=== PATIENT | male | born 1980 | race Two or more races ===

== ENCOUNTER 2024-12-05 10:18 | Emergency (ER) | payer MEDICAID, OTHER ==
[~2024-12-05] VITALS: Ht 172.7 cm; Wt 94.0 kg
--- NOTE | 2024-12-05 10:53 | ED.PDOC ---
History of Present Illness HPI Comments Chief Complaint: Back Pain Allergies: Coded Allergies: NO KNOWN ALLERGIES (Unverified , 12/05/24) Mode of Arrival: Ambulatory X-Ray, Labs, Meds, VS Vital Signs Date Time Temp Pulse Resp B/P (MAP) Pulse Ox O2 Delivery O2 Flow Rate FiO2 12/05/24 10:20 98.5 67 16 137/85 98 98.5 SEPSIS Sepsis Screen Date sepsis recognized/suspect: Dec 05, 2024 Time Sepsis recognized/suspect: 1020 Recent Procedure: No On Antibiotic Therapy: No Respiratory Rate >20: No Heart Rate >90: No Temp<36 C (96.8 F) or >38.3 C: No SBP <90 or MAP <65 mmHG: No New Acute Mental Status Change: No Is the patient on CPAP, BIPAP,: No Physician Orders Ketorolac Injection (Toradol Injection) (12/05/24 11:00) Vital Signs Date Time Temp Pulse Resp B/P (MAP) Pulse Ox O2 Delivery O2 Flow Rate FiO2 12/05/24 10:20 98.5 67 16 137/85 98 98.5 I personally scribed for JOHNNY MÁRQUEZ PAC ([email or web address]) on 12/05/24 at 10:53. Electronically submitted by Dio Tang ([email or web address]). I personally scribed for JOHNNY MÁRQUEZ PAC ([email or web address]) on 12/05/24 at 10:57. Electronically submitted by Dio Tang ([email or web address]). JOHNNY MÁRQUEZ PAC Dec 05, 2024 10:53
--- NOTE | 2024-12-05 11:00 | ED.PDOC ---
History of Present Illness HPI Comments 44 y/o M presents with 2x week history of chronic back pain. Onset of pain is unprovoked, and atraumatic. Denies any weakness, numbness, tingling, or further associated symptoms. Chief Complaint: Back Pain Time Seen by MD: 10:45 Reviewed Notes: Nurses Notes, Medications, Allergies Allergies: Coded Allergies: NO KNOWN ALLERGIES (Unverified , 12/05/24) Information Source: Patient Mode of Arrival: Ambulatory Severity: Moderate Timing: Hours Duration: Since onset Prehospital treatment: None Past Medical History PAST MEDICAL HISTORY: Denies Surgical History: Denies all surgeries Family History Family History: Unknown Social History Smoker: Non-Smoker Alcohol: Denies ETOH Use Drugs: Denies Drug Use Lives In: Home All Other Systems: Reviewed and Negative (As per HPI) Physical Exam General Appearance: Moderate Distress HEENT: Normal ENT Inspection, PERRL/EOMI, Pharynx Normal, TMs Normal Neck: Full Range of Motion, Non-Tender, Normal, Normal Inspection Respiratory: Chest Non-Tender, Lungs Clear, No Accessory Muscle Use, No Respiratory Distress, Normal Breath Sounds Cardiovascular: No Edema, No JVD, No Murmur, No Gallop, Normal Peripheral Pulses, Regular Rate/Rhythm Breast Exam: Deferred Gastrointestinal: No Organomegaly, Non Tender, No Pulsatile Mass, Normal Bowel Sounds, Soft Genitalia: Deferred Pelvic: Deferred Rectal: Deferred Extremities: No calf tenderness, Normal capillary refill, Normal inspection, Normal range of motion, Non-tender, No pedal edema Musculoskeletal : Location: Bilateral Extremity Location: Back Apperance: Limited ROM, Tenderness: Moderate Neurologic: Alert, high voltage electrician II-XII nml as Tested, No Motor Deficits, Normal Affect, Normal Mood, No Sensory Deficits Cerebellar Function: Normal Reflexes: Normal Skin: Dry, Normal Color, Warm Peripheral Pulses: 1+ carotid (R), 1+ carotid (L) Lymphatic: No Adenopathy Was a procedure done? Was a procedure done?: No Differential Dx Considerations may include: chronic back pain, musculoskeletal pain, sprain, , DDD, among others X-Ray, Labs, Meds, VS Vital Signs Date Time Temp Pulse Resp B/P (MAP) Pulse Ox O2 Delivery O2 Flow Rate FiO2 12/05/24 13:08 67 18 100 Room Air 12/05/24 12:47 98.3 67 18 155/80 (105) 100 98.3 12/05/24 10:20 98.5 67 16 137/85 98 98.5 Current Medications Medications (Trade) Dose Ordered Sig/Lashanda Route Start Time Stop Time Status Last Admin Ketorolac Tromethamine (Toradol Injection) 60 mg ONCE ONCE IM 12/05/24 11:00 12/05/24 11:01 DC 12/05/24 11:02 X-Ray, Labs, Meds, VS Comment Patient came to the emergency department with chronic back pain and exacerbation Patient will be medicated and discharged home to follow up with his PCP Time of 1ST Reevaluation: 11:15 Reevaluation 1ST: Unchanged Time of 2ND Reevaluation: 14:10 Reevaluation 2ND: Improved Consultation: PCP Patient Education/Counseling: Diagnosis, Treatment, Prognosis, Need For Follow Up Family Education/Counseling: Diagnosis, Treatment, Prognosis, Need For Follow Up, No Family Present SEPSIS Sepsis Screen Date sepsis recognized/suspect: Dec 05, 2024 Time Sepsis recognized/suspect: 1020 Recent Procedure: No On Antibiotic Therapy: No Respiratory Rate >20: No Heart Rate >90: No Temp<36 C (96.8 F) or >38.3 C: No SBP <90 or MAP <65 mmHG: No New Acute Mental Status Change: No Is the patient on CPAP, BIPAP,: No Vital Signs Date Time Temp Pulse Resp B/P (MAP) Pulse Ox O2 Delivery O2 Flow Rate FiO2 12/05/24 13:08 67 18 100 Room Air 12/05/24 12:47 98.3 67 18 155/80 (105) 100 98.3 12/05/24 10:20 98.5 67 16 137/85 98 98.5 Medications Medications Dose Ordered Sig/Lashanda Route Start Time Stop Time Status Last Admin Dose Admin Ketorolac Tromethamine 60 mg ONCE ONCE IM 12/05/24 11:00 12/05/24 11:01 DC 12/05/24 11:02 Departure 1 Departure Time of Disposition: 14:12 Impression: Primary Impression: Chronic back pain Additional Impression: Acute exacerbation of chronic low back pain Disposition: 01 HOME / SELF CARE / HOMELESS Condition: Fair Additional Instructions: Local heat and follow up with your PCP e-Prescriptions Cyclobenzaprine Hcl (Cyclobenzaprine Hcl) 10 Mg Tab 10 MG PO TID for 10 Days, #30 TAB Prov: ZO VILLALPANDO MD 12/05/24 Naproxen (Naproxen) 375 Mg Tab 375 MG PO TID for 10 Days, #30 TAB Prov: ZO VILLALPANDO MD 12/05/24 Discharged With: Self Critical Care Note Critical Care Time?: No Stability Stability form required: No Heart Score Heart Score: Heart Score Response (Comments) Value History N/A 0 EKG N/A 0 Age <45 0 Risk Factors No known risk factors 0 Troponin N/A 0 Total 0 I personally scribed for ZO VILLALPANDO MD ([email or web address]) on 12/05/24 at 11:00. Electronically submitted by Dio Tang ([email or web address]). ZO VILLALPANDO MD Dec 05, 2024 11:00
[2024-12-05] MEDS: KETOROLAC TROMETH 60MG/2ML VIAL IM ONE (11:02)
[2024-12-05 12:47] VITALS: BP 155/80; TEMP 98.3
[2024-12-05 13:08] VITALS: PULSE 67; RESP 18; O2SAT 100
[2024-12-05] MEDS ORDERED: CYCL-839 PO (14:15)
[2024-12-05] MEDS ORDERED: NAPR-957 PO (14:15)
== END 2024-12-05 14:41 | disposition home or self-care (01) ==
LOC: ER 10:18
DX: G89.29 Other chronic pain (principal); M54.50 Low back pain, unspecified
CPT/HCPCS: 96372; 99283; J1885

== ENCOUNTER 2025-04-20 15:22 | Emergency (ER) | payer MEDICAID ==
[~2025-04-20] VITALS: Ht 172.7 cm; Wt 97.1 kg
[~2025-04-20 15:22] MED LIST: CYCL-839 PO; NAPR-957 PO
[2025-04-20] MEDS: NEOMYCIN-BACITRACIN-POLYM UNITDOSE PKG TOP OINT TOP ONE (16:00)
[2025-04-20] MEDS: LIDOCAINE 1% (LOCAL ANESTH.) PF 5ml SDV ID ONE (16:00)
[2025-04-20 16:03] VITALS: BP 138/89; PULSE 72; RESP 20; TEMP 97.6; O2SAT 98
[2025-04-20] MEDS ORDERED: ACET500T58 PO (16:24)
[2025-04-20] MEDS ORDERED: CIPR-173 PO (16:24)
--- NOTE | 2025-04-20 16:25 | ED.PDOC ---
HPI Comments The patient with no reported past medical history presents for evaluation of a left index finger laceration sustained approximately 45 minutes before this visit while using a skill saw to work on a chicken coop. The injury involved the dorsal and volar aspects of the distal phalanx. The patient describes mild pain that increased after arrival and notes some bleeding, which has since slowed. There are no current complaints of numbness, weakness, or loss of motion. The patient reports no known allergies to medications. The last tetanus vaccination was received earlier this year. Chief Complaint: Laceration Time Seen by MD: 15:45 Reviewed Notes: Nurses Notes, Medications, Allergies Allergies: Coded Allergies: NO KNOWN ALLERGIES (Unverified , 12/05/24) Home Meds Active Scripts Ciprofloxacin Hcl (Cipro) 500 Mg Tab, 1 TAB PO BID for 5 Days, #10 TAB 0 Refills Prov:MALDONADO CHOWDHURY NP 04/20/25 Acetaminophen (Acetaminophen) 500 Mg Tab, 500 MG PO Q6HP PRN for 7 Days, #28 TAB 0 Refills Prov:MALDONADO CHOWDHURY NP 04/20/25 Cyclobenzaprine Hcl (Cyclobenzaprine Hcl) 10 Mg Tab, 10 MG PO TID for 10 Days, #30 TAB Prov:ZO VILLALPANDO MD 12/05/24 Naproxen (Naproxen) 375 Mg Tab, 375 MG PO TID for 10 Days, #30 TAB Prov:ZO VILLALPANDO MD 12/05/24 Information Source: Patient Mode of Arrival: Ambulatory Complexity: Intermediate Laceration Length (cm): 2 Past Medical History PAST MEDICAL HISTORY: Denies Surgical History: Denies all surgeries Family History Family History: Reviewed,noncontributory to illness, Unknown Social History Smoker: Non-Smoker Alcohol: Denies ETOH Use Drugs: Denies Drug Use Lives In: Home All Other Systems: Reviewed and Negative (PER HPI) Physical Exam General Appearance: No Apparent Distress, Normal HEENT: Normal ENT Inspection, Pharynx Normal, TMs Normal Neck: Full Range of Motion, Non-Tender, Normal, Normal Inspection Respiratory: Chest Non-Tender, Lungs Clear, No Accessory Muscle Use, No Respiratory Distress, Normal Breath Sounds Cardiovascular: No Edema, No JVD, No Murmur, No Gallop, Normal Peripheral Pulses, Regular Rate/Rhythm Breast Exam: Deferred Gastrointestinal: No Organomegaly, Non Tender, No Pulsatile Mass, Normal Bowel Sounds, Soft Genitalia: Deferred Pelvic: Deferred Rectal: Deferred Extremities: No calf tenderness, Normal capillary refill, Normal inspection, Normal range of motion, Non-tender, No pedal edema Musculoskeletal : Location: Left Extremity Location: Finger 3 (Localized laceration to the distal phalanx. No foreign body was appreciated. No active bleeding. Neurovascular sensation was intact) Apperance: Normal Neurologic: Alert, motor vehicles inspector II-XII nml as Tested, No Motor Deficits, Normal Affect, Normal Mood, No Sensory Deficits Cerebellar Function: Normal Reflexes: Normal Skin: Dry, Normal Color, Warm Lymphatic: No Adenopathy Was a procedure done? Was a procedure done?: Yes Sedation Sedation?: No Laceration Repair : Location L index Length 2 Anesthetic: Lidocaine Laceration Repair Prep: Saline, Betadine Laceration Repair Wound Comple: epidermis/dermis repair Laceration Repair: Skin, Simple (4-0 Ethilon), Bacitracin, Non-adherent gauze, Gauze Informed consent obtained: Yes Risks, benefits, and alternati: Yes Differential diagnosis Generic Laceration: Abrasion/Contusion, Laceration, Avulsion X-Ray, Labs, Meds, VS Vital Signs Date Time Temp Pulse Resp B/P (MAP) Pulse Ox O2 Delivery O2 Flow Rate FiO2 04/20/25 16:03 72 20 98 Room Air 04/20/25 16:03 97.6 72 20 138/89 (105) 98 97.6 04/20/25 15:23 97.1 68 18 131/91 95 97.1 X-Ray, Labs, Meds, VS Comment General Appearance-jagged laceration approximately 2 cm on the dorsal and volar aspects of the left index distal phalanx; irregular cuts; no visible tendon or nerve involvement; no foreign bodies seen; intact sensation; full range of mot ion; wound limited to epidermis and dermis. - Tetanus immunization up to date. - Wound irrigation and cleaning - Local digital block anesthesia - Placement of two 4-0 Ethilon sutures for wound closure The skin edges of the laceration were infiltrated with 1% lidocaine The skin surrounding the laceration was scrubbed with Betadine soaked sterile gauze The laceration was irrigated under high-pressure with a 60 mL syringe A total of 1L sterile water was used. Including diluted Betadine solution The laceration was prepped in sterile fashion with sterile drapes On examination under direct light, there was no foreign body seen The laceration was repaired in simple interrupted technique using Ethilon 4-0 sutures. There were no complications related to repair Education and follow-up instructions provided Wound check in 2 days Keep wound dry for 24 to 48 hours; dry dressing may be changed Protect from sunlight and keep area clean and dry. Use soap and water if it gets dirty High risk of possible scarring and education provided on ways to minimize scarring after wound heals Also provided education on possible complications post procedure including wound dehiscence, infection, etc. Time of 1ST Reevaluation: 16:13 Reevaluation 1ST: Improved Patient Education/Counseling: Diagnosis, Treatment Family Education/Counseling: Diagnosis, Treatment Departure 1 Departure Time of Disposition: 16:24 Impression: Primary Impression: Finger laceration Qualified Codes: S61.211A - Laceration without foreign body of left index finger without damage to nail, initial encounter Disposition: HOME / SELF CARE / HOMELESS Condition: Stable e-Prescriptions Ciprofloxacin Hcl (Cipro) 500 Mg Tab 1 TAB PO BID for 5 Days, #10 TAB 0 Refills Prov: MALDONADO CHOWDHURY NP 04/20/25 Acetaminophen (Acetaminophen) 500 Mg Tab 500 MG PO Q6HP PRN for 7 Days, #28 TAB 0 Refills Prov: MALDONADO CHOWDHURY NP 04/20/25 Discharged With: Self Critical Care Note Critical Care Time?: No Stability Stability form required: No Heart Score Heart Score: Heart Score Response (Comments) Value History N/A 0 EKG N/A 0 Age N/A 0 Risk Factors N/A 0 Troponin N/A 0 Total 0 MALDONADO CHOWDHURY NP Apr 20, 2025 16:25
[2025-04-20] MEDS: ETHYL CHLORIDE SPRAY TOP ONE (16:38)
== END 2025-04-20 16:40 | disposition home or self-care (01) ==
LOC: ER 15:22
DX: S61.219A Laceration without foreign body of unspecified finger without damage to nail, initial encounter (principal); Z79.899 Other long term (current) drug therapy; Z79.1 Long term (current) use of non-steroidal anti-inflammatories (NSAID); X58.XXXA Exposure to other specified factors, initial encounter; Y93.89 Activity, other specified; Y92.89 Other specified places as the place of occurrence of the external cause; Y99.8 Other external cause status
CPT/HCPCS: 12001; 99283; A4649